=== PATIENT | male | born 1995 | race Two or more races ===

== ENCOUNTER 2025-03-22 15:05 | Emergency (ER) | payer OTHER ==
[~2025-03-22] VITALS: Ht 185.4 cm; Wt 105.0 kg
[2025-03-22 15:23] VITALS: O2SAT 96
[2025-03-22 15:42] VITALS: BP 142/69; PULSE 78; RESP 18; TEMP 37.1; O2SAT 100
[2025-03-22] MEDS: LIDOCAINE HCL 1% 20ML VIAL INL ONE (16:45)
[2025-03-22] MEDS: IBUPROFEN 600MG TABLET PO ONE (17:13)
[2025-03-22] MEDS ORDERED: SULF1TAB48 MT (18:23)
[2025-03-22] MEDS: ACETAMINOPHEN 500MG TABLET PO ONE (18:30)
[2025-03-22] MEDS ORDERED: SULFAMETHOXAZOLE/TRIMETHOPRIM 800/160MG TABLET PO ONE (18:30)
[2025-03-22] MEDS: BACITRACIN ZINC OINT UDPKT TOP ONE (18:44)
[2025-03-22] MEDS ORDERED: SULFAMETHOXAZOLE/TRIMETHOPRIM 800/160MG TABLET PO SCH (19:00)
== END 2025-03-22 19:30 | disposition home or self-care (01) ==
LOC: ER 15:05
DX: L02.412 Cutaneous abscess of left axilla (principal)
CPT/HCPCS: 10060; 99284; J2003; Z7610 ×2